=== PATIENT | female | born 1955 | race Caucasian/White ===

== ENCOUNTER 2017-12-19 20:54 | Inpatient (IN) | payer OTHER ==
[2017-12-19 22:49] LABS: ADD MAN DIFF? NO
[2017-12-19 22:53] LABS: WHITE BLOOD COUNT 6.2 10^3/ul (4.8-10.8)
[2017-12-19 22:53] LABS: BASOPHILS % 0.5 % (0.0-2.0); EOSINOPHILS # 0.2 10^3/ul (0.0-0.5); EOSINOPHILS % 3.4 % (0.0-7.0); HEMATOCRIT 43.3 % (37.0-47.0); HEMOGLOBIN 14.1 g/dl (12.0-16.0); LYMPHOCYTES # 1.2 10^3/ul (0.8-2.9); LYMPHOCYTES % 19.6 % (15.0-51.0); MEAN CORPUSCULAR HEMOGLOBIN 26.6 pg (29.0-33.0); MEAN CORPUSCULAR HGB CONC 32.6 g/dl (32.0-37.0); MEAN CORPUSCULAR VOLUME 81.5 fl (82.0-101.0); MEAN PLATELET VOLUME 11.7 fl (7.4-10.4); MONOCYTE # 0.5 10^3/ul (0.3-0.9); MONOCYTES % 7.6 % (0.0-11.0); NEUTROPHIL # 4.2 10^3/ul (1.6-7.5); NEUTROPHILS % 68.7 % (39.0-77.0); PLATELET COUNT 123 10^3/UL (140-415); RED BLOOD COUNT 5.31 10^6/ul (4.20-5.40); RED CELL DISTRIBUTION WIDTH 13.7 % (11.5-14.5)
[2017-12-19 23:11] LABS: ALANINE AMINOTRANSFERASE 25 IU/L (13-69); ALBUMIN 4.5 g/dl (3.3-4.9); ALBUMIN/GLOBULIN RATIO 1.18; ALKALINE PHOSPHATASE 107 IU/L (42-121); ANION GAP 16 (8-16); ASPARTATE AMINO TRANSFERASE 18 IU/L (15-46); BILIRUBIN,INDIRECT 0.5 mg/dl (0-1.1); BILIRUBIN,TOTAL 0.5 mg/dl (0.2-1.3); BLOOD UREA NITROGEN 24 mg/dl (7-20); CALCIUM 9.4 mg/dl (8.4-10.2); CARBON DIOXIDE 23 mmol/L (21-31); CHLORIDE 110 mmol/L (97-110); CHOL/HDL RATIO 3.4 RATIO; CHOLESTEROL 235 mg/dl (100-200); CREATININE 1.42 mg/dl (0.44-1.00); GLUCOSE 106 mg/dl (70-220); HDL CHOLESTEROL 68 mg/dl (35-98); INR 0.98; LDL CHOLESTEROL,CALCULATED 131 mg/dl; POTASSIUM 4.8 mmol/L (3.5-5.1); PROTIME 13.1 Sec (11.9-14.9); SODIUM 144 mmol/L (135-144); TOTAL PROTEIN 8.3 g/dl (6.1-8.1); TRIGLYCERIDES 179 mg/dl (0-149)
[2017-12-19 23:12] LABS: PARTIAL THROMBOPLASTIN TIME 29.7 Sec (25.0-35.0)
[2017-12-19] MEDS: SOD CHLORIDE 0.9% 500 ML IV (23:20)
[2017-12-19 23:22] LABS: TROPONIN-I < 0.012 ng/ml (0.000-0.120)
[2017-12-19 23:23] LABS: HEMOGLOBIN A1C 5.8 % (0-5.9)
[2017-12-20] MEDS ORDERED: ACETAMINOPHEN 325 MG TAB PO (00:30)
[2017-12-20] MEDS ORDERED: NACL 0.9% 3 ML SYG IV (00:30)
[2017-12-20] MEDS ORDERED: ALBUTEROL/IPRATROPIUM (NEB) 3 ML AMP HHN (00:30)
[2017-12-20] MEDS ORDERED: ONDANSETRON 4 MG INJ IV (00:30)
[2017-12-20 05:38] LABS: ADD MAN DIFF? NO
[2017-12-20 05:44] LABS: ABNORMAL IP MESSAGE 1; BASOPHILS % 0.5 % (0.0-2.0); EOSINOPHILS # 0.2 10^3/ul (0.0-0.5); EOSINOPHILS % 3.8 % (0.0-7.0); HEMATOCRIT 41.4 % (37.0-47.0); HEMOGLOBIN 13.6 g/dl (12.0-16.0); LYMPHOCYTES # 1.2 10^3/ul (0.8-2.9); LYMPHOCYTES % 20.4 % (15.0-51.0); MEAN CORPUSCULAR HEMOGLOBIN 26.9 pg (29.0-33.0); MEAN CORPUSCULAR HGB CONC 32.9 g/dl (32.0-37.0); MEAN PLATELET VOLUME 12.8 fl (7.4-10.4); MONOCYTE # 0.4 10^3/ul (0.3-0.9); MONOCYTES % 7.4 % (0.0-11.0); NEUTROPHILS % 67.6 % (39.0-77.0); PLATELET COUNT 94 10^3/UL (140-415); RED BLOOD COUNT 5.05 10^6/ul (4.20-5.40); RED CELL DISTRIBUTION WIDTH 14.2 % (11.5-14.5)
[2017-12-20 05:54] LABS: POSITIVE DIFF @See below
[2017-12-20 06:02] LABS: HEMOGLOBIN A1C 5.6 % (0-5.9)
[2017-12-20] MEDS: LEVOTHYROXINE 112 MCG TAB PO (06:05)
[2017-12-20 06:17] LABS: ALANINE AMINOTRANSFERASE 21 IU/L (13-69); ALBUMIN 4.3 g/dl (3.3-4.9); ALBUMIN/GLOBULIN RATIO 1.38; ALKALINE PHOSPHATASE 99 IU/L (42-121); ANION GAP 16 (8-16); ASPARTATE AMINO TRANSFERASE 18 IU/L (15-46); BILIRUBIN,INDIRECT 0.4 mg/dl (0-1.1); BILIRUBIN,TOTAL 0.4 mg/dl (0.2-1.3); BLOOD UREA NITROGEN 22 mg/dl (7-20); CALCIUM 9.2 mg/dl (8.4-10.2); CARBON DIOXIDE 23 mmol/L (21-31); CHLORIDE 110 mmol/L (97-110); CHOL/HDL RATIO 3.6 RATIO; CHOLESTEROL 216 mg/dl (100-200); CREATININE 1.32 mg/dl (0.44-1.00); GLUCOSE 100 mg/dl (70-220); HDL CHOLESTEROL 60 mg/dl (35-98); MAGNESIUM 2.1 mg/dl (1.7-2.5); POTASSIUM 4.2 mmol/L (3.5-5.1); SODIUM 145 mmol/L (135-144); TOTAL PROTEIN 7.4 g/dl (6.1-8.1); TRIGLYCERIDES 146 mg/dl (0-149)
[2017-12-20 06:21] LABS: LDL CHOLESTEROL,CALCULATED 127 mg/dl
[2017-12-20] MEDS: ASPIRIN 81 MG TAB PO (09:16)
[2017-12-20] MEDS: NIFEdipine (XL) 90 MG TAB PO (09:17)
[2017-12-20] MEDS: SPIRONOLACTONE 25 MG TAB PO (09:18)
[2017-12-20] MEDS: HEPARIN 5,000 UNIT/0.5 ML VIAL SC ×2 (09:20→21:09)
[2017-12-20] MEDS: LABETALOL 100 MG TAB PO ×3 (10:03→21:08)
[2017-12-20 12:43] LABS: ADD UMIC YES; UR ASCORBIC ACID NEGATIVE (NEGATIVE); UR BILIRUBIN (Dip) NEGATIVE (NEGATIVE); UR BLOOD (Dip) NEGATIVE (NEGATIVE); UR CLARITY CLEAR (CLEAR); UR COLOR STRAW (YELLOW); UR GLUCOSE (Dip) NEGATIVE (NEGATIVE); UR KETONES (Dip) NEGATIVE (NEGATIVE); UR LEUKOCYTE ESTERASE (Dip) NEGATIVE Leu/ul (NEGATIVE); UR NITRITE (Dip) NEGATIVE (NEGATIVE); UR RBC 0 /HPF (0-5); UR SPECIFIC GRAVITY (Dip) 1.006 (1.003-1.030); UR TOTAL PROTEIN (Dip) 1+ mg/dl (NEGATIVE); UR UROBILINOGEN (Dip) NEGATIVE (NEGATIVE); UR WBC 1 /HPF (0-5)
[2017-12-20 14:42] LABS: CREATININE,URINE RANDOM 39.38 mg/dl (20-320)
[2017-12-20 14:42] LABS: SODIUM,URINE RANDOM 85 mmol/L (30-90)
[2017-12-20 14:49] LABS: AMPHETAMINE/METHAMPHETAMINE Negative (NEGATIVE); BARBITURATES Negative (NEGATIVE); BENZODIAZEPINES Negative (NEGATIVE); CANNABINOIDS Negative (NEGATIVE); COCAINE Negative (NEGATIVE); OPIATES Negative (NEGATIVE)
[2017-12-20] MEDS ORDERED: ATORVASTATIN 10 MG TAB PO (21:00)
[2017-12-20] MEDS: ATORVASTATIN 40 MG TAB PO (21:07)
[2017-12-20] MEDS: hydrALAzine 20 MG INJ IV (21:39)
[2017-12-21 06:26] LABS: ADD MAN DIFF? NO
[2017-12-21 06:34] LABS: WHITE BLOOD COUNT 5.9 10^3/ul (4.8-10.8)
[2017-12-21 06:34] LABS: BASOPHILS % 0.3 % (0.0-2.0); EOSINOPHILS # 0.2 10^3/ul (0.0-0.5); EOSINOPHILS % 3.2 % (0.0-7.0); HEMATOCRIT 40.6 % (37.0-47.0); HEMOGLOBIN 13.3 g/dl (12.0-16.0); LYMPHOCYTES # 1.5 10^3/ul (0.8-2.9); LYMPHOCYTES % 24.5 % (15.0-51.0); MEAN CORPUSCULAR HEMOGLOBIN 26.9 pg (29.0-33.0); MEAN CORPUSCULAR HGB CONC 32.8 g/dl (32.0-37.0); MEAN PLATELET VOLUME 11.9 fl (7.4-10.4); MONOCYTE # 0.5 10^3/ul (0.3-0.9); MONOCYTES % 8.1 % (0.0-11.0); NEUTROPHIL # 3.8 10^3/ul (1.6-7.5); NEUTROPHILS % 63.6 % (39.0-77.0); PLATELET COUNT 151 10^3/UL (140-415); RED BLOOD COUNT 4.95 10^6/ul (4.20-5.40); RED CELL DISTRIBUTION WIDTH 14.3 % (11.5-14.5)
[2017-12-21 07:04] LABS: ANION GAP 18 (8-16); BLOOD UREA NITROGEN 33 mg/dl (7-20); CALCIUM 8.9 mg/dl (8.4-10.2); CARBON DIOXIDE 22 mmol/L (21-31); CHLORIDE 107 mmol/L (97-110); CREATININE 1.61 mg/dl (0.44-1.00); GLUCOSE 104 mg/dl (70-220); MAGNESIUM 2.2 mg/dl (1.7-2.5); PHOSPHORUS 4.5 mg/dl (2.5-4.9); POTASSIUM 4.3 mmol/L (3.5-5.1); SODIUM 143 mmol/L (135-144)
[2017-12-21] MEDS: LEVOTHYROXINE 112 MCG TAB PO (07:12)
[2017-12-21] MEDS: SPIRONOLACTONE 25 MG TAB PO (08:24)
[2017-12-21] MEDS: ASPIRIN 81 MG TAB PO (08:24)
[2017-12-21] MEDS: LABETALOL 100 MG TAB PO ×3 (08:25→20:33)
[2017-12-21] MEDS: HEPARIN 5,000 UNIT/0.5 ML VIAL SC ×2 (08:26→20:38)
[2017-12-21] MEDS: NIFEdipine (XL) 90 MG TAB PO (08:29)
[2017-12-21] MEDS: AMLODIPINE 5 MG TAB PO ×2 (13:28→20:33)
[2017-12-21] MEDS: ATORVASTATIN 40 MG TAB PO (20:32)
[2017-12-22] MEDS: LEVOTHYROXINE 112 MCG TAB PO (06:04)
[2017-12-22 07:04] LABS: ANION GAP 20 (8-16); BLOOD UREA NITROGEN 39 mg/dl (7-20); CALCIUM 9.1 mg/dl (8.4-10.2); CARBON DIOXIDE 21 mmol/L (21-31); CHLORIDE 106 mmol/L (97-110); CREATININE 1.63 mg/dl (0.44-1.00); GLUCOSE 123 mg/dl (70-220); MAGNESIUM 2.4 mg/dl (1.7-2.5); PHOSPHORUS 5.3 mg/dl (2.5-4.9); POTASSIUM 4.4 mmol/L (3.5-5.1); SODIUM 143 mmol/L (135-144)
[2017-12-22] MEDS: AMLODIPINE 5 MG TAB PO ×2 (08:31→20:27)
[2017-12-22] MEDS: ASPIRIN 81 MG TAB PO (08:31)
[2017-12-22] MEDS: SPIRONOLACTONE 25 MG TAB PO (08:31)
[2017-12-22] MEDS: HEPARIN 5,000 UNIT/0.5 ML VIAL SC ×2 (08:32→20:31)
[2017-12-22] MEDS: LABETALOL 100 MG TAB PO ×3 (08:32→20:26)
[2017-12-22] MEDS: ATORVASTATIN 40 MG TAB PO (20:26)
[2017-12-23] MEDS: LEVOTHYROXINE 112 MCG TAB PO (06:17)
[2017-12-23] MEDS: ASPIRIN 81 MG TAB PO (08:42)
[2017-12-23] MEDS: SPIRONOLACTONE 25 MG TAB PO (08:42)
[2017-12-23] MEDS: AMLODIPINE 5 MG TAB PO ×2 (08:42→21:34)
[2017-12-23] MEDS: LABETALOL 100 MG TAB PO ×3 (08:43→21:33)
[2017-12-23] MEDS: HEPARIN 5,000 UNIT/0.5 ML VIAL SC ×2 (08:46→21:35)
[2017-12-23 14:56] LABS: CREATININE, RANDOM URINE 48 mg/dL (20-320); MICROALBUMIN 26.2 mg/dL; MICROALBUMIN/CREATININE RATIO 546 (<30)
[2017-12-23] MEDS: ATORVASTATIN 40 MG TAB PO (21:33)
[2017-12-24] MEDS: LEVOTHYROXINE 112 MCG TAB PO (05:56)
[2017-12-24 07:48] LABS: ANION GAP 16 (8-16); BLOOD UREA NITROGEN 49 mg/dl (7-20); CALCIUM 8.9 mg/dl (8.4-10.2); CARBON DIOXIDE 20 mmol/L (21-31); CHLORIDE 111 mmol/L (97-110); CREATININE 1.81 mg/dl (0.44-1.00); GLUCOSE 110 mg/dl (70-220); MAGNESIUM 2.5 mg/dl (1.7-2.5); PHOSPHORUS 5.2 mg/dl (2.5-4.9); POTASSIUM 4.9 mmol/L (3.5-5.1); SODIUM 142 mmol/L (135-144)
[2017-12-24] MEDS: HEPARIN 5,000 UNIT/0.5 ML VIAL SC ×2 (08:38→21:09)
[2017-12-24] MEDS: AMLODIPINE 5 MG TAB PO ×2 (08:39→21:03)
[2017-12-24] MEDS: ASPIRIN 81 MG TAB PO (08:39)
[2017-12-24] MEDS: LABETALOL 100 MG TAB PO ×3 (08:39→21:02)
[2017-12-24] MEDS: SPIRONOLACTONE 25 MG TAB PO (08:39)
[2017-12-24] MEDS ORDERED: DOCUSATE SODIUM 100 MG CAP PO (16:00)
[2017-12-24] MEDS: ATORVASTATIN 40 MG TAB PO (21:02)
[2017-12-25] MEDS: LEVOTHYROXINE 112 MCG TAB PO (05:33)
[2017-12-25] MEDS: ASPIRIN 81 MG TAB PO (08:41)
[2017-12-25] MEDS: LABETALOL 100 MG TAB PO ×3 (08:42→21:26)
[2017-12-25] MEDS: AMLODIPINE 5 MG TAB PO ×2 (08:42→21:27)
[2017-12-25] MEDS: HEPARIN 5,000 UNIT/0.5 ML VIAL SC ×2 (08:43→21:25)
[2017-12-25] MEDS: SPIRONOLACTONE 25 MG TAB PO (08:43)
[2017-12-25] MEDS: ATORVASTATIN 40 MG TAB PO (21:26)
[2017-12-26] MEDS: LEVOTHYROXINE 112 MCG TAB PO (05:52)
[2017-12-26] MEDS: HEPARIN 5,000 UNIT/0.5 ML VIAL SC ×2 (09:39→21:17)
[2017-12-26] MEDS: ASPIRIN 81 MG TAB PO (09:41)
[2017-12-26] MEDS: SPIRONOLACTONE 25 MG TAB PO (09:42)
[2017-12-26] MEDS: AMLODIPINE 5 MG TAB PO ×2 (09:42→21:17)
[2017-12-26] MEDS: LABETALOL 100 MG TAB PO ×2 (09:42→14:00)
[2017-12-26] MEDS: ATORVASTATIN 40 MG TAB PO (21:16)
[2017-12-26] MEDS: LABETALOL 200 MG TAB PO (21:16)
[2017-12-27 06:11] LABS: ANION GAP 12 (8-16); BLOOD UREA NITROGEN 51 mg/dl (7-20); CALCIUM 8.7 mg/dl (8.4-10.2); CARBON DIOXIDE 19 mmol/L (21-31); CHLORIDE 116 mmol/L (97-110); CREATININE 1.63 mg/dl (0.44-1.00); GLUCOSE 117 mg/dl (70-220); MAGNESIUM 2.6 mg/dl (1.7-2.5); PHOSPHORUS 5.1 mg/dl (2.5-4.9); POTASSIUM 4.7 mmol/L (3.5-5.1); SODIUM 142 mmol/L (135-144)
[2017-12-27] MEDS: LEVOTHYROXINE 112 MCG TAB PO (06:12)
[2017-12-27] MEDS: ASPIRIN 81 MG TAB PO (09:01)
[2017-12-27] MEDS: LABETALOL 200 MG TAB PO (09:01)
[2017-12-27] MEDS: AMLODIPINE 5 MG TAB PO (09:02)
[2017-12-27] MEDS: HEPARIN 5,000 UNIT/0.5 ML VIAL SC (09:03)
== END 2017-12-27 18:10 | disposition home health service (06) | DRG 64 ==
LOC: MS4 12-21 12:53 → MS3 12-20 00:16 → E/R 20:54 → MS4 12-20 03:05 → MS1 12-24 22:20
DX: I63.9 Cerebral infarction, unspecified (principal); G93.49 Other encephalopathy; N17.9 Acute kidney failure, unspecified; E87.0 Hyperosmolality and hypernatremia; G81.94 Hemiplegia, unspecified affecting left nondominant side; I16.1 Hypertensive emergency; E78.5 Hyperlipidemia, unspecified; E03.9 Hypothyroidism, unspecified; N18.9 Chronic kidney disease, unspecified; I12.9 Hypertensive chronic kidney disease with stage 1 through stage 4 chronic kidney disease, or unspecified chronic kidney disease; R47.01 Aphasia; R13.10 Dysphagia, unspecified; E11.22 Type 2 diabetes mellitus with diabetic chronic kidney disease
CPT/HCPCS: 70450; 70544; 70549; 70551; 71045; 80048; 80053; 80061; 80307; 81001; 81003; 82043; 83036; 83735; 84100; 84155; 84300; 84439; 84443; 84481; 84484; 85025; 85610; 85730; 92610; 93005; 93306; 97110; 97116; 97162; 97165; 97530; 99291-25